=== PATIENT | female | born 1945 | race Caucasian/White ===

== ENCOUNTER 2018-09-07 08:26 | Day surgery (SDC) | payer MEDICARE, MEDICAID ==
[~2018-09-07] VITALS: Ht 152.4 cm; Wt 55.3 kg
[2018-09-07] MEDS ORDERED: LIP40 PO (10:25)
[2018-09-07] MEDS ORDERED: CLOP75TA16 PO (10:25)
[2018-09-07] MEDS ORDERED: GABA-531 PO (10:25)
[2018-09-07] MEDS ORDERED: METO-396 PO (10:25)
[2018-09-07] MEDS ORDERED: ASPI-1159 PO (10:25)
[2018-09-07] MEDS ORDERED: LISI-604 PO (10:25)
[2018-09-07] MEDS ORDERED: INSU100I24 SQ (10:36)
[2018-09-07] MEDS ORDERED: INSU100I13 SQ (10:36)
[2018-09-07] MEDS ORDERED: IODIXANOL 320MG/ML 100 ML BOTTLE IV ONE (10:54)
[2018-09-07] MEDS ORDERED: LIDOCAINE HCL 1% 20ML VIAL (Pyxis) INJ ONE (10:54)
[2018-09-07] MEDS ORDERED: FENTANYL CITRATE/PF 50MCG/ML 2ML VIAL ONE (11:01)
[2018-09-07] MEDS ORDERED: MIDAZOLAM HCL 2 MG/2 ML VIAL ONE (11:01)
[2018-09-07] MEDS ORDERED: ONDANSETRON HCL 4MG/2ML INJ IV PRN (12:00)
[2018-09-07] MEDS ORDERED: ACETAMINOPHEN 325MG TABLET PO PRN (12:00)
== END 2018-09-07 17:00 | disposition home or self-care (01) ==
LOC: CCL 08:26
PROVIDERS: ATTEND Specialist
DX: I70.711 Atherosclerosis of other type of bypass graft(s) of the extremities with intermittent claudication, right leg (principal); I10 Essential (primary) hypertension; E78.5 Hyperlipidemia, unspecified; Z72.0 Tobacco use
CPT/HCPCS: 36246; 75716; 82962; 99152; C1760; J1644; J2250; J3010; J3490; Q9967; C1769; C1893; G0500

== ENCOUNTER 2018-09-15 16:36 | Inpatient (IN) | payer MEDICARE, MEDICAID ==
[~2018-09-15] VITALS: Ht 165.1 cm; Wt 81.6 kg
[~2018-09-15 16:36] MED LIST: ASPI-1159 PO; CLOP75TA16 PO; GABA-531 PO; INSU100I13 SQ; INSU100I24 SQ; LIP40 PO; LISI-604 PO; METO-396 PO
[2018-09-15 23:10] LABS: BASOPHILS % 0.5 % (0.0-2.0); EOSINOPHILS % 0.5 % (0.0-5.0); HEMATOCRIT. 43.9 % (36.0-48.0); HEMOGLOBIN. 14.5 g/dL (12.0-16.0); LYMPHOCYTES % 29.9 % (20.0-50.0); MEAN CORPUSCULAR VOLUME 87.5 fL (81.0-99.0); MEAN PLATELET VOLUME 10.7 fl (7.4-10.4); MONOCYTES % 5.8 % (2.0-8.0); NEUTROPHILS % 63.3 % (40.0-76.0); PLATELET 192 x1000/uL (130-400); RED BLOOD CELL COUNT 5.01 mill/uL (4.2-5.4); RED CELL DISTRIBUTION WIDTH 13.7 % (11.6-14.6)
[2018-09-15 23:14] LABS: CHLORIDE 105 mEq/L (98-107)
[2018-09-15 23:16] LABS: INR 0.9; PROTHROMBIN TIME 9.4 sec (9.1-11.1)
[2018-09-15] MEDS ORDERED: CLINDAMYCIN 600MG PREMIX 50 ML IV SCH (23:45)
[2018-09-15] MEDS ORDERED: CLINDAMYCIN 600 MG in SODIUM CHLORIDE 0.9% 50 ML IV SCH (23:51)
[2018-09-16] VITALS (8 sets, daily range): BP systolic 115–156; BP diastolic 47–65
[2018-09-16] MEDS ORDERED: VANCOMYCIN 1 G PREMIX 200 ML IV SCH
[2018-09-16] MEDS ORDERED: CLONIDINE 0.1MG TABLET PO PRN (11:00)
[2018-09-16] MEDS ORDERED: DOCUSATE SODIUM 100MG CAPSULE PO PRN (11:00)
[2018-09-16] MEDS ORDERED: ONDANSETRON HCL 4MG/2ML INJ IV PRN (11:00)
[2018-09-16] MEDS ORDERED: MAGNESIUM/ALUMINUM HYDROXIDE/SIMETHICONE 30ML UDC PO PRN (11:00)
[2018-09-16] MEDS ORDERED: HYDROCODONE/ACETAMINOPHEN 5/325MG TABLET PO PRN (11:00)
[2018-09-16] MEDS ORDERED: NICOTINE 14MG PATCH TD SCH (11:00)
[2018-09-16] MEDS ORDERED: ACETAMINOPHEN 325MG TABLET PO PRN (11:00)
[2018-09-16] MEDS ORDERED: IPRATROPIUM/ALBUTEROL 0.5-3(2.5)MG/3ML NEB INH PRN (11:00)
[2018-09-16] MEDS ORDERED: DEXTROSE 50% WATER 50ML SYRINGE IV PRN (11:15)
[2018-09-16] MEDS: BLOOD SUGAR DIAGNOSTIC STRIP TEST SCH ×3 (11:20→21:45)
[2018-09-16] MEDS: INSULIN LISPRO 100 UNITS/ML SUBCUT SCH ×3 (11:20→21:45)
[2018-09-16] MEDS ORDERED: IOHEXOL-350 100 ML BOTTLE ONE (15:49)
== END 2018-09-16 22:25 | disposition left against medical advice (07) | DRG 301 ==
LOC: ER 16:36 → 8WST 23:46 → EDBEDREQ 23:49 → EDBEDREQTM 23:49 → ENRESERV 09-16 00:33
PROVIDERS: ADMIT Internal Medicine; ATTEND Internal Medicine
DX: E11.51 Type 2 diabetes mellitus with diabetic peripheral angiopathy without gangrene (principal); E78.00 Pure hypercholesterolemia, unspecified; F17.200 Nicotine dependence, unspecified, uncomplicated; L60.0 Ingrowing nail; E78.5 Hyperlipidemia, unspecified; Z53.21 Procedure and treatment not carried out due to patient leaving prior to being seen by health care provider; S90.851A Superficial foreign body, right foot, initial encounter; X58.XXXA Exposure to other specified factors, initial encounter; Y93.89 Activity, other specified; Y92.89 Other specified places as the place of occurrence of the external cause; Y99.8 Other external cause status; Z95.820 Peripheral vascular angioplasty status with implants and grafts; Z79.4 Long term (current) use of insulin; Z79.82 Long term (current) use of aspirin; Z79.899 Other long term (current) drug therapy; Z88.0 Allergy status to penicillin
CPT/HCPCS: 36415; 71045; 73630; 75635; 80061; 82962; 83036; 83605; 84443; 84484; 93005; 93922; 96374; 99291; J1815; J3370; J3490; Q9967